=== PATIENT | male | born 1970 | race Two or more races ===

== ENCOUNTER 2022-11-06 20:11 | Inpatient (IN) | payer OTHER ==
[2022-11-06 22:12] VITALS: BMI 28.3
[2022-11-06] MEDS ORDERED: MAG HYDROX/AL HYDROX/SIMETH 30 ML UNIT-DOSE CUP PO PRN (23:00)
[2022-11-06] MEDS ORDERED: hydrOXYzine PAMOATE 25 MG CAPSULE (FP) PO PRN (23:00)
[2022-11-06] MEDS ORDERED: DICYCLOMINE HCL 10 MG CAPSULE PO PRN (23:00)
[2022-11-06] MEDS ORDERED: IBUPROFEN 600 MG TABLET (FP) PO PRN (23:00)
[2022-11-06] MEDS ORDERED: MAGNESIUM HYDROX 2400MG/30ML ORAL SUSPENSION 30 ML CUP PO PRN (23:00)
[2022-11-06] MEDS ORDERED: guaiFENesin 600 MG TABLET.ER (FP) PO PRN (23:00)
[2022-11-06] MEDS ORDERED: ONDANSETRON *ODT* 4 MG TABLET SL PRN (23:00)
[2022-11-06] MEDS ORDERED: IBUPROFEN 400 MG TABLET (FP) PO PRN (23:00)
[2022-11-06] MEDS ORDERED: BISMUTH SUBSALICYLATE 524 MG/30 ML PO PRN (23:00)
[2022-11-06] MEDS ORDERED: BENZOCAINE/MENTHOL (CHLORASEPTIC ) LOZENGE MM PRN (23:00)
[2022-11-06] MEDS ORDERED: POLYETHYLENE GLYCOL (HEALTHYLAX) 3350 17 GM PACKET PO PRN (23:00)
[2022-11-06] MEDS ORDERED: BENZONATATE 200 MG CAPSULE PO PRN (23:00)
[2022-11-06] MEDS ORDERED: NICOTINE POLACRILEX 2 MG GUM BUC PRN (23:00)
[2022-11-06] MEDS ORDERED: METHOCARBAMOL 500 MG TABLET PO PRN (23:00)
[2022-11-06] MEDS ORDERED: ACETAMINOPHEN 325 MG TABLET (FP) PO PRN (23:00)
[2022-11-06] MEDS ORDERED: P-EPHED 60MG/TRIPROLIDI 2.5MG TABLET PO PRN (23:00)
[2022-11-06] MEDS ORDERED: LOPERAMIDE HCL 2 MG CAPSULE PO PRN (23:00)
[2022-11-07] MEDS ORDERED: chlordiazePOXIDE HCL 25 MG CAPSULE PO PRN (08:43)
[2022-11-07 08:45] VITALS: BP 156/85; PULSE 73; RESP 17; TEMP 96.9
[2022-11-07] MEDS ORDERED: PRENATAL VITAMINS W/ FOLIC ACID TABLET (FP) PO SCH (10:00)
[2022-11-07] MEDS ORDERED: chlordiazePOXIDE HCL 25 MG CAPSULE PO SCH (11:00)
[2022-11-07 12:13] LABS: HEMATOCRIT 38.2 % (35.4-49); HEMOGLOBIN 12.7 GM/dL (11.7-16.9); MCH 33.3 pg (25.7-33.7); MCHC 33.1 g/dl (32.0-35.9); MEAN CELL VOLUME 100.5 fl (80-96); MEAN PLT VOLUME 8.5 fl (7.5-11.1); PLATELET COUNT 142 10^3/uL (134-434); RDW 14.6 % (11.9-15.9); WHITE BLOOD COUNT 4.2 K/mm3 (4.0-10.0)
[2022-11-07 12:25] LABS: POTASSIUM 3.8 mmol/L (3.5-5.1)
[2022-11-07 13:02] LABS: BLOOD UREA NITROGEN 9.1 mg/dL (7-18)
[2022-11-07 13:04] LABS: ALBUMIN 3.6 g/dl (3.4-5.0)
[2022-11-07 13:05] LABS: CALCIUM 8.7 mg/dL (8.5-10.1)
[2022-11-07 13:09] LABS: BILIRUBIN,TOTAL 0.5 mg/dL (0.2-1); TOT PROT 7.1 g/dl (6.4-8.2)
[2022-11-07 13:11] LABS: CREATININE 0.6 mg/dL (0.55-1.3)
[2022-11-07] MEDS ORDERED: THIAMINE HCL 100 MG TABLET (FP) PO SCH (22:00)
[2022-11-07] MEDS ORDERED: MELATONIN 5 MG TABLETS PO SCH (22:00)
[2022-11-09] MEDS ORDERED: chlordiazePOXIDE HCL 25 MG CAPSULE PO SCH (05:00)
[2022-11-10] MEDS ORDERED: chlordiazePOXIDE HCL 10 MG CAPSULE PO PRN
[2022-11-10] MEDS ORDERED: chlordiazePOXIDE HCL 10 MG CAPSULE PO SCH (05:00)
[2022-11-11] MEDS ORDERED: chlordiazePOXIDE HCL 10 MG CAPSULE PO SCH (05:00)
[2022-11-12] MEDS ORDERED: chlordiazePOXIDE HCL 10 MG CAPSULE PO ONE (05:00)
== END 2022-11-07 11:20 | disposition left against medical advice (07) | DRG 770 ==
LOC: YASAS 20:11 → Y6N 23:06
PROVIDERS: ADMIT Allergy & Immunology; ATTEND Surgery
PROC: HZ2ZZZZ Detoxification Services for Substance Abuse Treatment (ICD-10-PCS; principal; 2022-11-06)
DX: F10.230 Alcohol dependence with withdrawal, uncomplicated (principal); F10.220 Alcohol dependence with intoxication, uncomplicated; F17.210 Nicotine dependence, cigarettes, uncomplicated
CPT/HCPCS: 36415; 80053; 85027; 86780; 87635; 87811

== ENCOUNTER 2022-11-07 13:18 | Inpatient (IN) | payer OTHER ==
[2022-11-07 14:18] VITALS: BMI 26.7
[2022-11-07] MEDS ORDERED: POLYETHYLENE GLYCOL (HEALTHYLAX) 3350 17 GM PACKET PO PRN (16:51)
[2022-11-07] MEDS ORDERED: BISMUTH SUBSALICYLATE 524 MG/30 ML PO PRN (16:51)
[2022-11-07] MEDS ORDERED: BENZOCAINE/MENTHOL (CHLORASEPTIC ) LOZENGE MM PRN (16:51)
[2022-11-07] MEDS ORDERED: ONDANSETRON *ODT* 4 MG TABLET SL PRN (16:51)
[2022-11-07] MEDS ORDERED: BENZONATATE 200 MG CAPSULE PO PRN (16:51)
[2022-11-07] MEDS ORDERED: ACETAMINOPHEN 325 MG TABLET (FP) PO PRN (16:51)
[2022-11-07] MEDS ORDERED: guaiFENesin 600 MG TABLET.ER (FP) PO PRN (16:51)
[2022-11-07] MEDS ORDERED: IBUPROFEN 600 MG TABLET (FP) PO PRN (16:51)
[2022-11-07] MEDS ORDERED: MAGNESIUM HYDROX 2400MG/30ML ORAL SUSPENSION 30 ML CUP PO PRN (16:51)
[2022-11-07] MEDS ORDERED: DICYCLOMINE HCL 10 MG CAPSULE PO PRN (16:51)
[2022-11-07] MEDS ORDERED: MAG HYDROX/AL HYDROX/SIMETH 30 ML UNIT-DOSE CUP PO PRN (16:51)
[2022-11-07] MEDS ORDERED: LOPERAMIDE HCL 2 MG CAPSULE PO PRN (16:51)
[2022-11-07] MEDS ORDERED: IBUPROFEN 400 MG TABLET (FP) PO PRN (16:51)
[2022-11-07] MEDS ORDERED: P-EPHED 60MG/TRIPROLIDI 2.5MG TABLET PO PRN (16:51)
[2022-11-07] MEDS ORDERED: chlordiazePOXIDE HCL 25 MG CAPSULE PO PRN (16:52)
[2022-11-07] MEDS: chlordiazePOXIDE HCL 25 MG CAPSULE PO SCH ×2 (17:33→22:12)
[2022-11-07] MEDS: THIAMINE HCL 100 MG TABLET (FP) PO SCH (22:12)
[2022-11-08] MEDS: chlordiazePOXIDE HCL 25 MG CAPSULE PO SCH ×4 (05:17→22:31)
[2022-11-08] MEDS: PRENATAL VITAMINS W/ FOLIC ACID TABLET (FP) PO SCH (09:53)
[2022-11-08] MEDS: THIAMINE HCL 100 MG TABLET (FP) PO SCH (22:31)
[2022-11-09] MEDS: chlordiazePOXIDE HCL 25 MG CAPSULE PO SCH ×4 (05:08→22:33)
[2022-11-09] MEDS: PRENATAL VITAMINS W/ FOLIC ACID TABLET (FP) PO SCH (10:34)
[2022-11-09] MEDS: THIAMINE HCL 100 MG TABLET (FP) PO SCH (22:32)
[2022-11-10] MEDS ORDERED: chlordiazePOXIDE HCL 10 MG CAPSULE PO PRN
[2022-11-10] MEDS: chlordiazePOXIDE HCL 10 MG CAPSULE PO SCH ×4 (05:08→22:39)
[2022-11-10 08:33] LABS: HEMATOCRIT 36.9 % (35.4-49); HEMOGLOBIN 12.4 GM/dL (11.7-16.9); MCHC 33.5 g/dl (32.0-35.9); MEAN CELL VOLUME 101.4 fl (80-96); MEAN PLT VOLUME 8.8 fl (7.5-11.1); PLATELET COUNT 160 10^3/uL (134-434); RBC 3.63 M/mm3 (4.00-5.60); RDW 14.5 % (11.9-15.9); WHITE BLOOD COUNT 4.5 K/mm3 (4.0-10.0)
[2022-11-10 09:02] LABS: POTASSIUM 4.1 mmol/L (3.5-5.1)
[2022-11-10 09:08] LABS: BLOOD UREA NITROGEN 12.7 mg/dL (7-18); CALCIUM 8.7 mg/dL (8.5-10.1)
[2022-11-10 09:09] LABS: ALBUMIN 3.2 g/dl (3.4-5.0)
[2022-11-10 09:10] LABS: CREATININE 0.6 mg/dL (0.55-1.3)
[2022-11-10 09:12] LABS: BILIRUBIN,TOTAL 0.2 mg/dL (0.2-1); TOT PROT 6.3 g/dl (6.4-8.2)
[2022-11-10] MEDS: PRENATAL VITAMINS W/ FOLIC ACID TABLET (FP) PO SCH (10:26)
[2022-11-10] MEDS: THIAMINE HCL 100 MG TABLET (FP) PO SCH (22:39)
[2022-11-11] MEDS: chlordiazePOXIDE HCL 10 MG CAPSULE PO SCH ×2 (05:24→17:11)
[2022-11-11] MEDS: PRENATAL VITAMINS W/ FOLIC ACID TABLET (FP) PO SCH (10:26)
[2022-11-11] MEDS: THIAMINE HCL 100 MG TABLET (FP) PO SCH (22:11)
[2022-11-12] MEDS: chlordiazePOXIDE HCL 10 MG CAPSULE PO ONE ×2 (05:14→05:16)
[2022-11-12 09:31] VITALS: BP 140/77; PULSE 66; RESP 18; TEMP 97.9
[2022-11-12] MEDS: PRENATAL VITAMINS W/ FOLIC ACID TABLET (FP) PO SCH (10:22)
== END 2022-11-12 10:30 | disposition home or self-care (01) | DRG 775 ==
LOC: YASAS 13:18 → Y6N 16:53
PROVIDERS: ADMIT Allergy & Immunology; ATTEND Surgery
PROC: HZ2ZZZZ Detoxification Services for Substance Abuse Treatment (ICD-10-PCS; principal; 2022-11-07)
DX: F10.230 Alcohol dependence with withdrawal, uncomplicated (principal); F17.210 Nicotine dependence, cigarettes, uncomplicated; F10.220 Alcohol dependence with intoxication, uncomplicated
CPT/HCPCS: 36415; 80053; 85027; 86780